=== PATIENT | female | born 1965 | race Caucasian/White ===

== ENCOUNTER 2016-10-29 13:11 | Emergency (ER) | payer OTHER ==
[~2016-10-29] VITALS: Ht 175.3 cm; Wt 86.2 kg
[~2016-10-29 13:11] MED LIST: A/B OTIC15 ML; ADV100/50 INH; AMLODIPINE BESYL5 M1; COLACE100 MG PO; FLONS; HUMARA; HYDROCHLOROTHIA25 MG PO; KLONOPIN1 MG PO; LEXAPRO20 MG PO; LYRICA150 M1 PO; METHOTREXATE2.5 M2 PO; NOR10T PO; PREDNISONE10 MG PO; PRILOSEC40 MG PO; RESTORIL30 MG PO; ZANTAC 300300 MG PO; ZOF4 PO
[2016-10-29 14:21] LABS: BASOPHIL % 0.2 % (0-2); PLATELET COUNT 276 x10^3mcL (130-400)
[2016-10-29 14:25] LABS: RED CELL DISTRIBUTION WIDTH 19.6 % (11.5-14.5)
[2016-10-29 14:34] LABS: CALCIUM 8.5 mg/dL (8.5-10.1); CARBON DIOXIDE 27.4 mmol/L (21-32); CHLORIDE SERUM 104 mmol/L (98-107); CREATININE SERUM 0.8 mg/dL (0.6-1.0); GFR1 > 60 mL/min; GLUCOSE SERUM 83 mg/dL (74-106); POTASSIUM SERUM 3.8 mmol/L (3.5-5.1); SODIUM SERUM 139 mmol/L (136-145)
[2016-10-29 14:39] LABS: ALBUMIN 3.5 g/dL (3.4-5.0); ALKALINE PHOSPHATASE 84 U/L (46-116); ALT/SGPT 10 U/L (14-59); AST/SGOT 11 U/L (15-37); BILIRUBIN TOTAL 0.35 mg/dL (0.20-1.00); TOTAL PROTEIN, SERUM 7.1 g/dL (6.4-8.2)
[2016-10-29 16:11] VITALS: BP 138/82
== END 2016-10-29 16:11 | disposition home or self-care (01) ==
LOC: ED 13:11
PROVIDERS: Emergency Medicine
DX: M25.552 Pain in left hip (principal); I10 Essential (primary) hypertension; M32.9 Systemic lupus erythematosus, unspecified; M06.9 Rheumatoid arthritis, unspecified; K21.9 Gastro-esophageal reflux disease without esophagitis; G47.00 Insomnia, unspecified; J45.909 Unspecified asthma, uncomplicated; Z88.0 Allergy status to penicillin; Z96.643 Presence of artificial hip joint, bilateral
CPT/HCPCS: J2270; J2405; J7030; Q0092